=== PATIENT | male | born 1990 | race Caucasian/White ===

== ENCOUNTER 2017-04-05 21:12 | Emergency (ER) | payer OTHER | END 2017-04-05 21:45 | disposition home or self-care (01) | LOC: ER1 21:12 | DX: L03.115 Cellulitis of right lower limb (principal); F17.210 Nicotine dependence, cigarettes, uncomplicated | CPT/HCPCS: 99283 ==

== ENCOUNTER → 2022-05-19 | Outpatient (CLI) | payer OTHER ==
[~2022-05-19] MED LIST: ZOFRAN ODT 4 MG4 MG SL
== END ==
LOC: SLEEP 21:32
DX: G47.33 Obstructive sleep apnea (adult) (pediatric) (principal)
CPT/HCPCS: 95810